=== PATIENT | female | born 1940 | race Two or more races ===

== ENCOUNTER 2017-04-25 10:02 | Outpatient (CLI) | payer MEDICARE, OTHER ==
[~2017-04-25] VITALS: Ht 121.9 cm; Wt 89.8 kg
[2017-04-25 10:17] VITALS: BP 124/59
[2017-04-25] MEDS ORDERED: MEDROL DOSEPAK4 MG ORAL (11:31)
[2017-04-25] MEDS ORDERED: IBUPROFEN600 MG ORAL (11:31)
[2017-04-25] MEDS ORDERED: AMLODIPINE BESYL5 MG ORAL (11:31)
[2017-04-25] MEDS ORDERED: FLONASE1 SPRAYS NASAL (11:31)
[2017-04-25] MEDS ORDERED: MONTELUKAST SOD10 MG ORAL (11:31)
[2017-04-25] MEDS ORDERED: LEVALBUTER1.25 MG/3 IH (11:31)
--- NOTE | 2017-04-25 11:31 | GI Initial Consult Note ---
ChikaDaphne Stantonoi N.PMarta 04/25/17 1131: History of Present Illness General Date patient seen: Apr 25, 2017 Time patient seen: 11:27 Referring physician: IRMA GALVEZ Reason for Consultation: SCREENING COLON / ANEMIA Present Illness HPI 76 year old female patient referred by Dr. Galvez for evaluation of anemia and routine colonoscopy. She presents today with no gastrointestinal symptoms. C/ o of hoarseness. Her previous colonoscopy had been over 15 years ago. The patient recently suffered a PR, angiogram with stent placement. Denies any unintentional weight loss or changes in dietary habits. No signs of abuse or neglect. Patient is not fall risk. Emergency Operator >> Shaun Chacon MD Cardiology >> Tricia CRISTINA Home Meds Reported Medications Losartan Potassium (LOSARTAN POTASSIUM) 100 Mg Tablet, 100 MG ORAL DAILY, TAB 04/25/17 Clopidogrel Bisulfate (Plavix) 300 Mg Tablet, 300 MG ORAL DAILY, TAB 04/25/17 Benzonatate (ZONATUSS) 150 Mg Capsule, 150 MG ORAL, CAP 04/25/17 Atorvastatin (Lipitor) 80 Mg Tablet, 80 MG ORAL BEDTIME, #30 TAB 0 Refills 04/25/17 Aspirin* (ASPIR 81*) 81 Mg Tablet.dr, 81 MG ORAL DAILY, TAB 04/25/17 Amlodipine Besylate* (AMLODIPINE BESYLATE*) 5 Mg Tablet, 5 MG ORAL DAILY, TAB 04/25/17 Fluticasone Propionate (Fluticasone Propionate) 16 Gm [place].susp, 1 SPRAY NASAL TWICE A DAY, #16 EA per nostril 04/25/17 Ibuprofen* (MOTRIN*) 600 Mg Tablet, 600 MG ORAL THREE TIMES A DAY, #30 TAB 0 Refills 04/25/17 Levalbuterol Hcl (LEVALBUTEROL HCL) 1.25 Mg/3 Ml Vial.neb, 1.25 MG IH, VIAL 04/25/17 Methylprednisolone (Methylprednisolone*) 4 Mg Tab.ds.pk, 4 MG ORAL .as directed , #1 EA 0 Refills 04/25/17 Montelukast Sodium* (MONTELUKAST SODIUM*) 10 Mg Tablet, 10 MG ORAL DAILY, TAB 04/25/17 Med list reviewed/reconciled: Yes Allergies: Uncoded Allergies: ANTIBIOTICS (Allergy, Unknown, 04/25/17) UNKNOWN NAME Patient History History Provided By: Patient, Medical Record PMH Narrative HTN CAD November 2016 Asthma Angiogram - stent placement Past Surgical History: Left fracture Family History Narrative Father >> CAD Mother >> CAD Social History: Reports: other - coffee occasionally Review of Systems All Other Systems: negative except mentioned in HPI Physical Exam Vital Signs Date Time Temp Pulse Resp B/P (MAP) Pulse Ox O2 Delivery O2 Flow Rate FiO2 04/25/17 10:17 98.2 80 16 124/59 96 Sp02 EP Interpretation: reviewed, normal General Appearance: well appearing, no apparent distress, alert Head: normocephalic EENT: PERRL/EOMI, normal ENT inspection Neck: supple Respiratory: normal breath sounds, no respiratory distress Cardiovascular: normal rate Gastrointestinal: normal inspection, non tender, soft, normal bowel sounds, non -distended Rectal: deferred Genitourinary: no CVA tenderness Musculoskeletal: normal inspection, back normal Neurologic: normal inspection, alert, oriented x3, responsive Psychiatric: normal inspection, judgement/insight normal, memory normal Skin: normal inspection, normal color, no rash, warm/dry, palpation normal, well hydrated Lymphatic: normal inspection, no adenopathy GI: Plan Problems: (1) CAD (coronary artery disease) (2) HTN (hypertension) (3) Asthma Plan defer EGD/colonoscopy until October 2017 given recent angiogram with stent placement , will contact patient then for scheduling. cont current plan of care RTC prn Seen with Dr. Aguilar. Thank you for this patient referral. KIMMY AGUILAR 04/26/17 1006: History of Present Illness Present Illness Home Meds Reported Medications Losartan Potassium (LOSARTAN POTASSIUM) 100 Mg Tablet, 100 MG ORAL DAILY, TAB 04/25/17 Clopidogrel Bisulfate (Plavix) 300 Mg Tablet, 300 MG ORAL DAILY, TAB 04/25/17 Benzonatate (ZONATUSS) 150 Mg Capsule, 150 MG ORAL, CAP 04/25/17 Atorvastatin (Lipitor) 80 Mg Tablet, 80 MG ORAL BEDTIME, #30 TAB 0 Refills 04/25/17 Aspirin* (ASPIR 81*) 81 Mg Tablet.dr 81 MG ORAL DAILY, TAB 04/25/17 Amlodipine Besylate* (AMLODIPINE BESYLATE*) 5 Mg Tablet, 5 MG ORAL DAILY, TAB 04/25/17 Fluticasone Propionate (Fluticasone Propionate) 16 Gm [place].susp, 1 SPRAY NASAL TWICE A DAY, #16 EA per nostril 04/25/17 Ibuprofen* (MOTRIN*) 600 Mg Tablet, 600 MG ORAL THREE TIMES A DAY, #30 TAB 0 Refills 04/25/17 Levalbuterol Hcl (LEVALBUTEROL HCL) 1.25 Mg/3 Ml Vial.neb, 1.25 MG IH, VIAL 04/25/17 Methylprednisolone (Methylprednisolone*) 4 Mg Tab.ds.pk, 4 MG ORAL .as directed , #1 EA 0 Refills 04/25/17 Montelukast Sodium* (MONTELUKAST SODIUM*) 10 Mg Tablet, 10 MG ORAL DAILY, TAB 04/25/17 Allergies: Uncoded Allergies: ANTIBIOTICS (Allergy, Unknown, 04/25/17) UNKNOWN NAME GI: Plan Plan The patient was seen and examined at bedside and all new and available data was reviewed in the patients chart. I agree with the above findings, impression and plan. (Patient seen earlier today. Signature stamp does not reflect patient encounter time.). - MD [facility] Patrick NMartaPMarta Apr 25, 2017 11:31 KIMMY AGUILAR Apr 26, 2017 10:06
[2017-04-25] MEDS ORDERED: LOSARTAN POTAS100 MG ORAL (11:37)
[2017-04-25] MEDS ORDERED: LIPITOR80 MG ORAL (11:37)
[2017-04-25] MEDS ORDERED: PLAVIX300 MG ORAL (11:37)
[2017-04-25] MEDS ORDERED: ASPIR 8181 MG ORAL (11:37)
[2017-04-25] MEDS ORDERED: ZONATUSS150 MG ORAL (11:37)
== END 2017-04-25 11:00 | disposition home or self-care (01) ==
LOC: PAN 10:02
DX: I25.10 Atherosclerotic heart disease of native coronary artery without angina pectoris (principal); I10 Essential (primary) hypertension; J45.909 Unspecified asthma, uncomplicated; I25.2 Old myocardial infarction; Z79.82 Long term (current) use of aspirin; Z95.5 Presence of coronary angioplasty implant and graft; Z82.49 Family history of ischemic heart disease and other diseases of the circulatory system
CPT/HCPCS: 99201